=== PATIENT | male | born 1995 | race Caucasian/White ===

== ENCOUNTER 2017-02-25 03:20 | Emergency (ER) | payer BC ==
--- NOTE | 2017-02-25 03:31 | EDPHY ---
H & P Stated Complaint: +ETOH, fell on face, lip lac + broke front tooth, no LOC HPI/ROS: HPI CHIEF COMPLAINT: Alcohol intoxication, right lower lip laceration, dental fracture, jaw pain HISTORY OF PRESENT ILLNESS: This patient otherwise healthy 21-year-old male, no significant medical history does not take any daily medications except for attention deficit hyperactivity disorder, he presents to the emergency room by private vehicle after he got intoxicated this evening he tells me drank multiple alcoholic beverages beer and liquor. He returned home with this friends he fell and he hit his lip on the corner of a wall. Sustained a through and through lower right lip laceration as well as a fractured horizontally across tooth 8. Or his frontal incisor. The tooth distal place it is not loose. There is a fracture and pieces missing. He also is complaining of right lower jaw line pain and swelling. He has a normal bite no malocclusion. No TMJ pain. Denies headache neck pain chest pain or shortness of breath. He is intoxicated alcohol. Friend at bedside with sober. Past Medical History: No significant medical history except attention deficit hyperactivity disorder Past Surgical History: No recent surgical history Social History: [employer] student, drinks alcohol occasionally denies illicit drugs or tobacco Family History: Noncontributory ROS REVIEW OF SYSTEMS: A comprehensive 10 point review of systems is otherwise negative aside from elements mentioned in the history of present illness. Exam Constitutional triage nursing summary reviewed, vital signs reviewed, awake/ alert. Eyes normal conjunctivae and sclera, EOMI, PERRLA. HENT head/face: There is a 3 cm horizontal through and through lip laceration of the right lower lip tooth 8. Has a horizontal fracture line with missing tooth however stable, no malocclusion, midface stable, no TMJ pain however palpation of the right lower jaw line is swollen and tender, no intraoral fracture visualized. head is atraumatic normal inspection, atraumatic, moist mucus membranes, no epistaxis, neck supple/ no meningismus, no raccoon eyes. Respiratory clear to auscultation bilaterally, normal breath sounds, no respiratory distress, no wheezing. Cardiovascular rate normal, regular rhythm, no murmur, no edema, distal pulses normal. Gastrointestinal soft, non-tender, no rebound, no guarding, normal bowel sounds, no distension, no pulsatile mass. Genitourinary no CVA tenderness. Musculoskeletal no midline vertebral tenderness, full range of motion, no calf swelling, no tenderness of extremities, no meningismus, good pulses, neurovascularly intact. Skin pink, warm, & dry, no rash, skin atraumatic. Neurologic awake, alert and oriented x 3, AAOx3, moves all 4 extremities equally, motor intact, sensory intact, CN II-XII intact, normal cerebellar, normal vision, normal speech. Psychiatric normal mood/affect. Heme/Lymph/Immune no lymphadenopathy. Differential Diagnosis: Includes but is not limited to in a particular order acute alcohol intoxication, jaw fracture, lower lip laceration, fracture of the upper tooth 8. Medical Decision Making: Plan for this patient is wounds will need to be irrigated and cleaned out, then he will need to have a lip laceration repaired under sterile conditions, he will also need a CT scan of his face given the amount of pain and swelling to the right lower jaw to make sure does not jaw fracture. Re-evaluation: 0408AM: Breath alcohol 209. CT scan of the CT maxillofacial for jaw pain and swelling possible fracture. The results of the study are negative for acute fracture.. The study was read by Dr. William I viewed the images myself on the PACS system. Laceration Repair Procedure: Verbal Consent was obtained, Under sterile conditions, The patient had lidocaine without epinephrine used approximately 5ccs to local anesthetize the Right lower lip 4cm through-through Laceration. The wound was copiously irrigated with sterile fluid, the wound was explored for foreign bodies there were none visualized, the wound was explored with a sterile glove to the base. There are no deep structures involved, including no arterial injury. THREE 6.0 Prolene interrupted Sutures were placed in this patient's outer lip laceration. He had good close approximation of the wound edges. He Tolerated this well. Laceration Repair Procedure: Verbal Consent was obtained, Under sterile conditions, The patient had lidocaine without epinephrine used approximately 5ccs to local anesthetize the Right lower lip 4cm through-through Laceration. The wound was copiously irrigated with sterile fluid, the wound was explored for foreign bodies there were none visualized, the wound was explored with a sterile glove to the base. There are no deep structures involved, including no arterial injury. THREE 6.0 Rapid Adbsorbable interrupted Sutures were placed in this patient's Inner lip laceration. He had good close approximation of the wound edges. He Tolerated this well Source: Patient - Personal History Current Tetanus/Diphtheria Vaccine: Yes Current Tetanus Diphtheria and Acellular Pertussis (TDAP): Yes Tetanus Vaccine Date: 2013 - Medical/Surgical History Hx Asthma: No Hx Chronic Respiratory Disease: No Hx Diabetes: No Hx Cardiac Disease: No Hx Renal Disease: No Hx Cirrhosis: No Hx Alcoholism: No Hx HIV/AIDS: No Hx Splenectomy or Spleen Trauma: No Other PMH: denies - Social History Smoking Status: Current some day smoker Constitutional: Initial Vital Signs Temperature (C) 36.8 C 02/25/17 03:23 Heart Rate 81 02/25/17 03:23 Respiratory Rate 18 02/25/17 03:23 Blood Pressure 131/89 H 02/25/17 03:23 O2 Sat (%) 94 02/25/17 03:23 O2 Delivery Mode Room Air Allergies/Adverse Reactions: No Known Allergies Allergy (Unverified 02/25/17 03:26) Home Medications: Medication Instructions Recorded Rosa 02/25/17 Departure - Departure Disposition: Home, Routine, Self-Care Clinical Impression: Dental injury Qualifiers: Encounter type: initial encounter Qualified Code(s): S09.93XA - Unspecified injury of face, initial encounter Lip laceration Qualifiers: Encounter type: initial encounter Qualified Code(s): S01.511A - Laceration without foreign body of lip, initial encounter Alcohol intoxication Qualifiers: Complication of substance-induced condition: uncomplicated Qualified Code(s): F10.120 - Alcohol abuse with intoxication, uncomplicated Condition: Good Instructions: Care For Your Stitches (ED), Laceration (ED), Acute Dental Trauma (ED), Toothache (ED) Additional Instructions: 1. You need to follow up with the dentist about your dental fracture in injury to her tooth. 2. you need to keep your wounds clean. 3. You have stitches inner lip. The inner stitches inside her mouth or absorbable they will dissolve on their own. The outer stitches on the outside of your lip are not absorbable they need to be removed in 7 days. 4. Return emergency room if you have any worsening symptoms questions or concerns.
[2017-02-25 05:38] VITALS: BP 122/74; PULSE 84; RESP 16; TEMP 98.1; O2SAT 96
== END 2017-02-25 05:00 | disposition home or self-care (01) ==
PROC: 0CQ1XZZ Repair Lower Lip, External Approach (ICD-10-PCS; principal; 2017-02-25)
DX: S01.511A Laceration without foreign body of lip, initial encounter (principal); S09.93XA Unspecified injury of face, initial encounter; F10.120 Alcohol abuse with intoxication, uncomplicated; W01.198A Fall on same level from slipping, tripping and stumbling with subsequent striking against other object, initial encounter; Y92.009 Unspecified place in unspecified non-institutional (private) residence as the place of occurrence of the external cause; Y90.7 Blood alcohol level of 200-239 mg/100 ml